=== PATIENT | male | born 1965 | race Caucasian/White ===

== ENCOUNTER 2019-04-21 20:03 | Inpatient (IN) | payer BC, MEDICAID ==
[~2019-04-21] VITALS: Ht 180.3 cm; Wt 107.5 kg
[2019-04-21 20:39] LABS: Basophils # (auto) 0.1 uL; Basophils % (auto) 0.6 % (0.0-2.0); Eosinophils # (auto) 0.2 uL; Eosinophils % (auto) 1.7 % (0.0-7.0); Hematocrit 43.4 % (41.0-53.0); Hemoglobin 14.9 g/dL (13.5-17.5); Lymphocytes # (auto) 2.3 uL; Lymphocytes % (auto) 21.9 % (10.0-50.0); Mean Corpuscular Hgb Conc. 34.4 g/dL (32.0-36.0); Mean Corpuscular Volume 98.7 fL (80.0-100.0); Monocytes # (auto) 0.9 uL; Monocytes % (auto) 8.8 % (0.0-12.0); Neutrophils # (auto) 6.9 uL; Nucleated Red Blood Cells % 0.1 %; Platelet Count (auto) 186 10^3/uL (140-450); Red Cell Distribution Width 12.7 % (11.8-14.3); White Blood Cell 10.4 10^3/uL (4.4-10.8)
[2019-04-21 21:02] LABS: Albumin 3.6 g/dL (3.4-5.0); BUN/Creatinine Ratio 18.3; Calcium 9.3 mg/dL (8.5-10.1); Potassium 4.6 mmol/L (3.5-5.1)
[2019-04-21 21:11] LABS: Bilirubin, Total 0.4 mg/dL (0.2-1.0); Total Protein 7.6 g/dL (6.4-8.2)
[2019-04-21] MEDS ORDERED: InsuLIN REG 1unit/0.01ml Soln (100units/ml) IV ONE (21:30)
[2019-04-21] MEDS ORDERED: SODIUM CHLORIDE 0.9% 2,000 ML IV ONE (21:30)
[2019-04-21 21:56] LABS: Urine Bacteria NONE SEEN /hpf (None Seen); Urine Blood Negative /uL (Negative); Urine Specific Gravity 1.027 (1.001-1.035); Urine WBC <1 /hpf (0 - 3)
[2019-04-22] MEDS ORDERED: DEXTROSE (50%) 50ML SYRG IV PRN (01:45)
[2019-04-22] MEDS ORDERED: ACETAMINOPHEN 500 MG TAB PO PRN (01:45)
[2019-04-22] MEDS ORDERED: MORPHINE SULF INJ 2 MG/ML SYRINGE 1ML IV PRN (01:45)
[2019-04-22] MEDS ORDERED: ONDANSETRON HCL 4 MG/2 ML VIAL IV PRN (01:45)
[2019-04-22] MEDS: SODIUM CHLORIDE 0.9% 1,000 ML IV SCH ×2 (02:07→15:26)
--- NOTE | 2019-04-22 02:40 | NUR ---
MS admit from ER CHRISTIANOREGI BARCENAS admitted to tele/MS after NO SBAR was received. Patient oriented to CARMELLA PATTERSON RN primary RN, unit, room, bed, and unit policies regarding patient care and visiting hours. Patient weighed by bed scale and encouraged to call if they need something. All questions and concerns addressed, patient verbalized understanding. Patient is A/O x4, no S/S of distress, pain, or SOB. He is ambulatory, on RA, skin is intact. Call light is within reach, side rails up x2, bed is in lowest position.
[2019-04-22] MEDS: ACCU-CHEK COMFORT CURVE STRIP VI SCH ×5 (04:00→20:40)
[2019-04-22] MEDS: InsuLIN REG 1unit/0.01ml Soln (100units/ml) SC SCH ×5 (04:00→20:40)
--- NOTE | 2019-04-22 04:00 | NUR ---
AMA TO SMOKE PATIENT SIGNED AMA TO SMOKE. EXPLAINED TO PATIENT THIS IS A SMOKE-FREE HOSPITAL AND ALL THE RISKS INVOLVED WITH GOING OFF THE UNIT TO SMOKE, PATIENT VERBALIZED UNDERSTANDING. IT IS IN THE FRONT OF THE HARD CHART.
[2019-04-22] MEDS ORDERED: LISI10TA6 PO (04:20)
--- NOTE | 2019-04-22 04:22 | NUR ---
Patient's mother called, Britany Diehl. Patient did not request a password. She was updated on patient's status and visiting hours.
[2019-04-22 05:00] VITALS: BP 143/87
[2019-04-22 05:15] LABS: Basophils # (auto) 0.1 uL; Basophils % (auto) 0.9 % (0.0-2.0); Eosinophils # (auto) 0.3 uL; Eosinophils % (auto) 2.7 % (0.0-7.0); Hematocrit 39.8 % (41.0-53.0); Hemoglobin 13.7 g/dL (13.5-17.5); Lymphocytes # (auto) 3.4 uL; Lymphocytes % (auto) 30.2 % (10.0-50.0); Mean Corpuscular Hgb Conc. 34.5 g/dL (32.0-36.0); Mean Corpuscular Volume 95.8 fL (80.0-100.0); Monocytes # (auto) 0.9 uL; Neutrophils # (auto) 6.5 uL; Neutrophils % (auto) 58.2 % (37.0-80.0); Platelet Count (auto) 170 10^3/uL (140-450); Red Blood Cells 4.16 10^6/uL (4.5-5.90); Red Cell Distribution Width 12.5 % (11.8-14.3); White Blood Cell 11.2 10^3/uL (4.4-10.8)
[2019-04-22 05:43] LABS: BUN/Creatinine Ratio 19.6; Calcium 8.1 mg/dL (8.5-10.1); Potassium 3.5 mmol/L (3.5-5.1)
--- NOTE | 2019-04-22 07:30 | NUR ---
Opening Shift Note Assumed care of patient, awake and alert. No S/S of distress/SOB or pain. Instructed on POC and to call for assist PRN, will continue to monitor for changes Q1hr and PRN. Bed in low and locked position, rails up x2, no-slip socks on.
[2019-04-22 08:30] VITALS: BP 133/90
--- NOTE | 2019-04-22 09:20 | NUR ---
FAMILY AT BEDSIDE UPDATED ON PLAN OF CARE
[2019-04-22] MEDS: PANTOPRAZOLE 40 MG TAB PO SCH (09:48)
[2019-04-22] MEDS: LISINOPRIL 10 MG TAB PO SCH (09:53)
[2019-04-22 12:43] VITALS: BP 123/79
[2019-04-22] MEDS ORDERED: metFORMIN HYDROCHLORIDE 850 MG TAB PO ONE (16:30)
[2019-04-22 16:50] VITALS: BP 137/89
--- NOTE | 2019-04-22 19:27 | NUR ---
Opening Shift Note Assumed care of patient, awake and alert x4. No S/S of distress/SOB or pain. Call light is within reach, side rails up x2, bed is in lowest position. Instructed on POC and to call for assist PRN. All questions and concerns answered, will continue to monitor for changes Q1hr and PRN.
[2019-04-22 22:00] VITALS: BP 132/80
[2019-04-23] MEDS: InsuLIN REG 1unit/0.01ml Soln (100units/ml) SC SCH ×4 (00:05→12:03)
[2019-04-23] MEDS: ACCU-CHEK COMFORT CURVE STRIP VI SCH ×4 (00:05→12:01)
--- NOTE | 2019-04-23 01:14 | NUR ---
Patient is going downstairs to smoke.
--- NOTE | 2019-04-23 02:05 | NUR ---
Patient is back in his room and resting in bed. Call light is within reach.
[2019-04-23 05:00] VITALS: BP 127/78
[2019-04-23 06:16] LABS: Basophils # (auto) 0.1 uL; Basophils % (auto) 0.8 % (0.0-2.0); Eosinophils # (auto) 0.3 uL; Eosinophils % (auto) 2.4 % (0.0-7.0); Hematocrit 43.6 % (41.0-53.0); Hemoglobin 15.2 g/dL (13.5-17.5); Lymphocytes # (auto) 2.7 uL; Lymphocytes % (auto) 25.7 % (10.0-50.0); Mean Corpuscular Hemoglobin 33.7 pg (28.0-32.0); Mean Corpuscular Hgb Conc. 34.9 g/dL (32.0-36.0); Mean Corpuscular Volume 96.5 fL (80.0-100.0); Monocytes # (auto) 0.8 uL; Monocytes % (auto) 7.8 % (0.0-12.0); Neutrophils # (auto) 6.6 uL; Neutrophils % (auto) 63.3 % (37.0-80.0); Nucleated Red Blood Cells % 0.1 %; Platelet Count (auto) 179 10^3/uL (140-450); Red Blood Cells 4.51 10^6/uL (4.5-5.90); Red Cell Distribution Width 12.4 % (11.8-14.3); White Blood Cell 10.5 10^3/uL (4.4-10.8)
[2019-04-23 06:27] LABS: Potassium 4.4 mmol/L (3.5-5.1)
[2019-04-23 06:31] LABS: BUN/Creatinine Ratio 12.6; Calcium 8.6 mg/dL (8.5-10.1)
--- NOTE | 2019-04-23 06:58 | NUR ---
Closing note Patient is resting in bed, no S/S of distress, SOB, or pain. Will endorse care to dayshift RN.
--- NOTE | 2019-04-23 07:30 | NUR ---
Patient out of bed. Already with AMA to smoke.
[2019-04-23] MEDS ORDERED: metFORMIN HYDROCHLORIDE 850 MG TAB PO SCH (08:00)
--- NOTE | 2019-04-23 08:00 | NUR ---
Opening Shift Note Assumed care of patient, awake and alert. No S/S of distress/SOB or pain. Instructed on POC and to call for assist PRN, will continue to monitor for changes Q1hr and PRN.
[2019-04-23 09:39] VITALS: BP 131/82
[2019-04-23] MEDS: PANTOPRAZOLE 40 MG TAB PO SCH (09:41)
[2019-04-23] MEDS: LISINOPRIL 10 MG TAB PO SCH (09:42)
[2019-04-23] MEDS ORDERED: NICOTINE 14 MG/24HR TOPICAL PATCH TD SCH (10:00)
--- NOTE | 2019-04-23 11:40 | NUR ---
Nutrition consult/assessment Notes please see attached link for complete assessment Est. Needs ABW (92 kg): 8786-3316 kcal (23-25 kcal/kgBW), 92-101 gms pro (1.0-1.1 gms/kgBW). Will continue to monitor pertinent labs and reassess nutrient need prn Addendum: 04/23/19 at [address] Amended: Links added.
[2019-04-23 13:14] VITALS: BP 138/86
--- NOTE | 2019-04-23 15:05 | NUR ---
Accucheck-321mg/dl referred to Dr. Warner.
[2019-04-23] MEDS ORDERED: METF-372 PO (15:22)
[2019-04-23] MEDS ORDERED: LISI2.5T47 PO (15:22)
--- NOTE | 2019-04-23 15:23 | NUR ---
Dr. Warner at bedside, patient is advised especially on how to manage hyperglycemia. Diabetic education given. Orders received, patient is for discharge today.
[2019-04-23 15:35] VITALS: BP 138/86
--- NOTE | 2019-04-23 17:00 | NUR ---
Patient medications filled from [facility] except for the script for the glucometer that needs to be authorized by patient's insurance.
--- NOTE | 2019-04-23 17:30 | NUR ---
Discharge instructions given as ordered. Encourage to follow up with [facility] Bandar Ross on 04/30/19 at 3:00pm #[phone] located [place] [address] [facility], [place] as instructed. All questions and concerns addressed. Patient verbalized understanding. Medication reconciliation form completed and copy given to patient. IV removed with catheter intact, pressure dressing applied. Patient ambulated to vehicle with all personal belongings, accompanied by staff and family member. No distress noted at time of departure.
== END 2019-04-23 17:30 | disposition home or self-care (01) | DRG 420 ==
LOC: ER 20:08 → OVERFLOW 20:09 → WEST WING 04-22 03:04
PROVIDERS: ADMIT Nurse Practitioner Family; ATTEND Internal Medicine Nephrology
DX: E11.65 Type 2 diabetes mellitus with hyperglycemia (principal); N28.9 Disorder of kidney and ureter, unspecified; E87.1 Hypo-osmolality and hyponatremia; E86.0 Dehydration; I10 Essential (primary) hypertension; E66.9 Obesity, unspecified; F17.210 Nicotine dependence, cigarettes, uncomplicated; Z80.52 Family history of malignant neoplasm of bladder; Z79.899 Other long term (current) drug therapy; Z82.49 Family history of ischemic heart disease and other diseases of the circulatory system; Z68.33 Body mass index [BMI] 33.0-33.9, adult
CPT/HCPCS: 36415; 36600; 80048; 80053; 81001; 82805; 82962; 83036; 85025; 94761; 96361; 96374; G0378; J1815